=== PATIENT | male | born 1995 | race Caucasian/White ===

== ENCOUNTER 2025-04-29 23:05 | Emergency (ER) | payer OTHER, SELFPAY ==
--- NOTE | 2025-04-30 00:13 | ED_ITS ---
HPI - General Adult General Chief complaint: Cardiac Arrest/CPR Stated complaint: OVERDOSE/CARDIAC ARREST Time Seen by Provider: 04/29/25 23:19 History of Present Illness HPI narrative: 29-year-old male with history of fentanyl abuse presenting in cardiac arrest. EMS was called by family as he was found unresponsive on the porch. Family gave him intranasal Narcan without response. EMS arrived and thought they felt a faint radial pulse at 10:40 a.m., however when they placed a ekg monitor tech on the patient was asystole. CPR was started with ACLS protocols. Patient then arrived in our ED with CPR in progress. Exam Narrative: APPEARANCE: CPR in progress Head: atraumatic. EYES: fixed and dilated NOSE: Atraumatic NECK: Trachea midline RESPIRATORY: no spontaneous breathing CARDIOVASCULAR: pulseless ABDOMINAL: Non-distended MUSCULOSKELETAl: No obvious deformities NEURO: unresponsive SKIN:: cold PSYCHIATRIC: unresponsive Procedures Intubation Intubation #1: Intubation Date: 04/30/25 Time out performed: No sedative: none Laryngoscope: [place] Tube Size (cm): 7.5 Method of Intubation: orotracheal Number of Attempts: 1 Tube Secured Depth (cm): 23 Tube Secured Location: lips Tube Placement Confirmation: visualized tube passing through cords, equal breath sounds bilaterally, no breath sounds over epigastrium and confirmation by capnometry Patient Tolerated Procedure: well Intubation Complications: none Medical Decision Making MDM Narrative Medical decision making narrative: -Course: 29-year-old male presenting in cardiac arrest. On arrival patient was in asystole. Given 2 mg of Narcan. ACLS protocols were followed. He was intubated by myself on 1st pass attempt. On pulse check patient was asystole. CPR had been ongoing for 29 minutes. Chance of neurologically intact survival is zero. Time of was called at 11:09 a.m. Supervisor [employer]'s contacted. Family was notified. Discharge Plan Discharge Clinical Impression: Cardiac arrest Patient Disposition: Condition: Stable Patient Language: Armenian
--- OUTSIDE RECORDS SUMMARY | 2025-04-30 01:36 | XMS_ITS | Patient Health Record ---
Author Organization [facility] Address [address] [place] [address] Care Team Providers Care Feltmaker And Weigher Name Role Phone Kirt Giordano Primary Care Provider AzulsandraTrista Unavailable [phone] [place] [facility], SR Adult FAREED Unavailabl e [phone] Reason For Referral No Information Medications Medication SIG (Take, Route, Frequency, Duration) Notes Start Date End Date Status Ativan 1 MG 1 tablet at bedtime as needed Orally Once a day Active Gabapentin 600 MG 1 tablet Orally thre e times daily 12/06/2019 Active cloNIDine HCl 0.1 MG 1 tablet Orally Onc e a day; Duration: 30 day(s) Active tiZANidine HCl 4 MG 1 tablet as needed Orally Three times a day Active Thiamine HCl 100 MG 1 tablet Orally Once a day; Duration: 30 day(s) Active Folic Acid 1 MG 1 tablet Orally Once a day; Duration: 30 day(s) Active Multivitamin Adult - as directed Orally Active Suboxone 8-2 MG 1/2application under the tongue and allow to dissolve Sublingual twice a day; Duration: 7 days Not-Taking Alfuzosin HCl 10 MG as directed Orally Active Doxycycline Hyclate 100 MG 1 capsule Orally Twice a day Active Social History Tobacco Use: Social History Observation Description Date Details (start date - stop date) Current Smoker NA - NA Sex Assigned At : Social History Observation Description Sex Assigned At Male Dont use, Tobacco Use/Smoking Question Answer Notes Are you a current smoker How often do you smoke cigarettes? every day How many cigarettes a day do you smoke? 11-20 How soon after you wake up d o you smoke your first cigarette? within 5 minutes Are you interested in quitting? Not ready to jolanta t Additional Findings: Tobacco User Modera te cigarette smoker (10-19 cigs/day) Alcohol Screen (Audit-C) Question Answer Notes Did you have a drink containing alcohol in the p ast year? No Points 0 Interpretation Negative PRAPARE Question Answer Notes Date Completed/Updated: 06/23/2018 What is your current housing situation? I do not have housing (staying with others, in a hotel, in a residential, living outside on the street, on a beach, or in a park) Are you worried about losing your housing? No What is the highest level of school that you have finished? High school diploma or GED What is your current work situation? Unemployed and seeking work In the past year, have you o r any family members you live with been unable to get any of the following when it was really needed? Check all that apply I do not have problems meeting my needs Has lack of transportation k ept you from medical appointments, meetings, work or from getting things needed for daily living? No How often do you see or talk to people that you care about and feel close to? (For example: talking to friends on the phone, visiting friends or family, going to yazidi or club meetings) 3 to 5 times a week How stressed are you? Stress is when someone feels tense, nervous, anxious, or can\t sleep at night because their mind is troubled Quite a bit In the past year have you sp ent more than 2 nights in a row in a penitentiary, longterm, half-way center, or juvenile correctional facility? Yes What was your release date? 04/07/2018 Are you a refugee? No What country are you from? [place] Do you feel physically and e motionally safe where you currently live? Yes In the past year, have you b een afraid of your partner or ex-partner? No PRAPARE Score: 8 Problems Problem Type SNOMED Code ICD Code Onset Dates Problem Status W/U Status Risk Notes Problem Tobacco dependence (38967218) Tobacco dependence (F17.200) Active confirmed Problem Mixed anxiety and depressive disorder (918457822) Depression with anxiety (F41.8) Active confirmed Problem Opioid use disorder (7160059722) Opioid use disorder (F11.99) Active confirmed Problem Benzodiazepine abuse in remission (F13.11) Active confirmed Plan Of Treatment No Information Insurance Providers Payer Name Payer Address Payer Phone Subscriber Number Group Number Insured Name Patient Relationship to Insured Coverage Start Date Coverage End Date [facility] Att Claims Department [address] [place] [address] [phone] [id number] Valdez Blevins Self - patient is the insured 0 Medical (General) History Surgical History Surgery Date(Month/Year)
--- OUTSIDE RECORDS SUMMARY | 2025-04-30 01:36 | XMS_ITS | Clinical Summary ---
Author Organization [facility] Address [address] [place] [address] Phone Care Team Providers Care Garnetter Name Role Phone Elieser Tay MD Primary Care Provider Allergies No known active allergies Medications * This document contains information received from the source organization and may not represent a complete record from that organization. nicotine (NICODERM CQ) 21 MG/24HR PATCH 24 HR 1 Patch by Transdermal route daily. 30 Patch 3 Active nicotine polacrilex (NICORETTE) 2 MG Gum Take 1 Each by mouth as needed for Smoking cessation. 100 Each 3 Active sulfamethoxazol e-trimethoprim (BACTRIM, SEPTRA) 400-80 MG TabletIndicatio ns:Wound Infection Take 2 Tablets by mouth 2 times daily. Indications: Wound Infection Active chlordiazePOXID E (LIBRIUM) 10 MG CapsuleIndicati ons:Stimulant withdrawal,Opio id withdrawal Take 1 Capsule by mouth every 8 hours as needed for Withdrawal. 10 Capsule 5 Active naloxone HCl (Narcan) 4 MG/0.1ML Liquid 1 [place] by Nasal route as needed for Opioid Reversal. Administer in one nostril for symptoms of overdose (severe sleepiness, breathing problems, not responsive). Call 911. May repeat 1 spray in alternate nostril in 2-3 minutes if needed. 2 Each 5 Active Active Problems Problem Noted Date Diagnosed Date Tobacco abuse 09/16/2024 GERD (gastroesophageal reflux disease) 3 Fentanyl dependence 05/26/2023 Marijuana abuse 05/26/2023 Tobacco abuse 05/26/2023 Anxiety 05/26/2023 Depression 05/26/2023 Opioid withdrawal 05/26/2023 Polysubstance abuse 05/26/2023 Resolved Problems Problem Noted Date Diagnosed Date Resolved Date Opioid withdrawal 09/16/2024 09/18/2024 Stimulant withdrawal 09/16/2024 025 Social History Tobacco Use Types Packs/Day Years Used Date Smoking Tobacco: Every Day Cigarettes Smokeless Tobacco: Never Tobacco Cessation:Ready to Q uit: Not Asked; Counseling Given: Not Answered Alcohol Use Standard Drinks/Week Comments Never 0 (1 standard drink = 0.6 oz pur e alcohol) [facility] Utilities Answer Date Recorded In the past 12 months has [employer] electric, gas, oil, or water company threatened to shut off services in your home? Patient declined 09/16/2024 Social Connection and Isolation Panel Answer Date Recorded In a typical week, how many times do you talk on the phone with family, friends, or neighbors? Patient declined 09/16/2024 How often do you get togethe r with friends or relatives? Patient declined 09/16/2024 How often do you attend moravian or druze serv ices? Patient declined 09/16/2024 Do you belong to any clubs o r organizations such as moravian groups, unions, fraternal or athletic groups, or school groups? Patient declined 09/16/2024 How often do you attend meet ings of the clubs or organizations you belong to? Patient declined 09/16/2024 Are you , , di vorced, , never , or living with a partner? Patient declined 09/16/2024 AUDIT-C Answer Date Recorded Q1: How often do you have a drink containing alc ohol? Patient declined 09/16/2024 Q2: How many drinks containi ng alcohol do you have on a typical day when you are drinking? Patient declined 09/16/2024 Q3: How often do you have si x or more drinks on one occasion? Patient declined 09/16/2024 Overall Financial Resource Strain (CARDIA) Answe r Date Recorded How hard is it for you to pa y for the very basics like food, housing, medical care, and heating? Patient declined 09/16/2024 [facility] - Occupational Stress Questionnaire Answer Date Recorded Do you feel stress - tense, restless, nervous, or anxious, or unable to sleep at night because your mind is troubled all the time - these days? Patient declined 09/16/2024 Exercise Vital Sign Answer Date Recorde d On average, how many days pe r week do you engage in moderate to strenuous exercise (like a brisk walk)? Patient declined On average, how many minutes do you engage in exercise at this level? Patient declined 09/16/2024 Hunger Vital Sign Answer Date Recorded Within the past 12 months, y ou worried that your food would run out before you got the money to buy more. Patient declined Within the past 12 months, t he food you bought just didn't last and you didn't have money to get more. Patient declined 09/2024 PRAPARE - Transportation Answer Date Re corded In the past 12 months, has l ack of transportation kept you from medical appointments or from getting medications? Patient declined 09/16/2024 In the past 12 months, has l ack of transportation kept you from meetings, work, or from getting things needed for daily living? Patient declined 09/16/2024 Housing Stability Vital Sign Answer Jb e Recorded In the last 12 months, was t here a time when you were not able to pay the mortgage or rent on time? Patient declined 09/17/19 25 In the past 12 months, how m any times have you moved where you were living? 1 09/16/2024 At any time in the past 12 m [facility], were you homeless or living in a correction (including now)? 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 Gender Identity Not on file Sexual Orientation Not on file Last Filed Vital Signs Vital Sign Reading Time Taken Comments Blood Pressure 131/82 09/18/2024 7:54 AM CDT Pulse 87 09/18/2024 7:54 AM CDT Temperature 37.1 C (98.8 F) 09/18/2024 7:54 AM CDT Respiratory Rate 16 09/18/2024 9:16 AM CDT Oxygen Saturation 98% 09/18/2024 7:54 AM CDT Inhaled Oxygen Concentration - - Weight 102.7 kg (226 lb 8 oz) 09/16/2024 2:57 PM CDT Height 188 cm (6' 2) 09/16/2024 2:57 PM CDT Body Mass Index 29.08 09/16/2024 2:57 PM CDT Plan of Treatment Not on file Insurance MEDICAID [employer] Advance Directives * Full Code (Latest Code Status on File) Date Activated Date Inactivated Comments 09/17/2024 1:46 PM CPR-Full Treatm ent: FULL ARREST: Attempt Resuscitation/CPR wit intubation and mechanical ventilation. PRE-ARREST: Use entire range of life support measures to stabilize the patient. * Full Code Date Activated Date Inactivated Comments 05/26/2023 10:39 AM 05/28/2023 3:26 PM CPR-Full Treatment: FULL ARREST: Attempt Resuscitation/CPR wit intubation and mechanical ventilation. PRE-ARREST: Use entire range of life support measures to stabilize the patient. Care Teams Garnetter Relationship Specialty Start Date End Date Elieser Tay MD [address] [facility] [address] [place] [address] PCP - General Internal Medicine 05/26/23
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
== END 2025-04-29 23:19 | disposition expired ==
LOC: ANHED 04-30 01:34
PROVIDERS: Emergency Provider Emergency Medicine; PCP Internal Medicine
DX: I46.9 Cardiac arrest, cause unspecified (principal); F11.10 Opioid abuse, uncomplicated
CPT/HCPCS: 31500; 92950; 99285; J0168; J2312; J7120